=== PATIENT | female | born 1980 | race Caucasian/White ===

== ENCOUNTER → 2017-02-23 | Outpatient (CLI) | payer OTHER ==
--- NOTE | 2017-02-24 05:22 | REP ---
Clinical: Growth discrepancy . Comparison: None available . Findings: Examination demonstrates a single live intrauterine in cephalic presentation. motion is identified by technologist. Placenta is noted anteriorly and grade II without evidence for placenta previa or abruption. Amniotic fluid volume is normal. Cervix measures 3.8 cm in length and appears closed. Nuchal cord cannot be excluded. Gestational age by LMP 32 weeks 4 days with PONCHO 04/16/2017 . Gestational age by current measurements 33 weeks 5 days with PONCHO 04/08/2017 . FHR equals 157 beats per minute. BPD 8.3 cm 33 weeks 3 days HC 30.1 cm 33 weeks 3 days AC 31.0 cm 35 weeks 0 days FL 6.6 cm 33 weeks 6 days HL 5.6 cm 32 weeks 4 days HC/AC ratio 0.97 Estimated weight 2408 grams ( 80th percentile). Amniotic fluid index equals 13.0 cm. Umbilical cord SD ratio equals 2.47 Anatomical assessment demonstrates normal cranium, cavum, lungs, four-chamber heart, diaphragm, stomach, three-vessel cord/cord insertion, kidneys/bladder. Impression: Single live advanced gestation in cephalic presentation. Estimated weight within normal range. Amniotic fluid index normal. Nuchal cord cannot be excluded. Signed by Braxton Joshi MD 02/24/2017 05:14 A
== END ==
LOC: M RAD 13:32
PROVIDERS: ATTEND Obstetrics & Gynecology
DX: Z36 Encounter for antenatal screening of mother (principal); Z3A.32 32 weeks gestation of pregnancy

== ENCOUNTER 2017-04-10 07:37 | Inpatient (IN) | payer OTHER ==
[~2017-04-10] VITALS: Ht 167.6 cm; Wt 125.0 kg
[~2017-04-10 07:37] MED LIST: BICITRA 30ML SOLN UDC PO SCH; PRENTAB9 PO
[2017-04-10 08:09] VITALS: BP 127/76
[2017-04-10] MEDS ORDERED: AZITHROMYCIN INJ 500 MG, VIAL MATE ADAPTER 1 EACH in D5W 250 ML IV ONE (09:00)
[2017-04-10 09:12] VITALS: BP 139/79
[2017-04-10] MEDS ORDERED: LR 1,000 ML IV ONE (09:30)
[2017-04-10] MEDS ORDERED: LR 1,000 ML IV SCH ×3 (09:45→17:15)
[2017-04-10 09:50] LABS: MEAN CORPUSCULAR HEMOGLOBIN 30.2 pg (27.0-33.0); MEAN CORPUSCULAR VOLUME 88.6 fl (80.0-96.0); RED CELL DISTRIBUTION WIDTH 14.6 % (11.5-14.5); WHITE BLOOD COUNT 9.1 K/mm3 (4.0-10.0)
[2017-04-10] MEDS ORDERED: ceFAZolin 2 GM/D5W 50 ML IV BAG (J0690) As Ordered ONE (12:38)
[2017-04-10] MEDS ORDERED: NALBUPHINE HCL 10 MG/ML AMP (J2300) IV PRN (12:46)
[2017-04-10] MEDS ORDERED: NALOXONE INJ 0.4 MG/1 ML VIAL (J2310) IV PRN ×2 (12:46)
[2017-04-10] MEDS ORDERED: METOCLOPRAMIDE INJ 10MG/2ML VIAL (J2765) IV PRN ×2 (12:46→14:15)
[2017-04-10] MEDS ORDERED: ONDANSETRON 4MG/2ML VIAL (J2405) IV PRN ×3 (12:46→17:15)
[2017-04-10] MEDS ORDERED: ONDANSETRON 4MG/2ML VIAL (J2405) As Ordered ONE (13:09)
[2017-04-10] MEDS ORDERED: MORPHINE PRES-FREE INJ 10 MG/10 ML VIAL (J2274) As Ordered ONE (13:09)
[2017-04-10] MEDS ORDERED: PHENYLephrine HCL 500 MCG/5 ML (100MCG/ML) SYRINGE (J2370) As Ordered ONE (13:09)
[2017-04-10] MEDS ORDERED: KETOROLAC 60 MG/2 ML VIAL (J1885) As Ordered ONE (13:09)
[2017-04-10] MEDS ORDERED: ePHEDrine SULFATE 25 MG/5 ML(5MG/ML) SYRINGE As Ordered ONE (13:09)
[2017-04-10] MEDS ORDERED: MIDAZOLAM INJ 2 MG/2 ML VIAL (J2250) As Ordered ONE (13:25)
[2017-04-10] MEDS ORDERED: fentaNYL 100 MCG/2 ML INJECTION (J3010) IV PRN (14:15)
[2017-04-10] MEDS ORDERED: PERCOCET 5MG/325MG TAB PO PRN ×2 (14:15→17:15)
[2017-04-10] MEDS ORDERED: diphenhydrAMINE INJ 50MG/ML VIAL (J1200) IV PRN (14:15)
[2017-04-10 15:10] VITALS: BP 124/68
[2017-04-10 15:40] VITALS: BP 127/67
[2017-04-10] MEDS ORDERED: METHYLERGONOVINE MALEATE 0.2 MG/ML VIAL (J2210) IM PRN (17:15)
[2017-04-10] MEDS ORDERED: MEASLES,MUMPS,RUBELLA VACCINE INJ (MMR-II) (90707) SC SCH (17:15)
[2017-04-10] MEDS ORDERED: RHOGAM 300 MCG (1500 IU) INJ (J2790) IM SCH (17:15)
[2017-04-10] MEDS ORDERED: PROMETHAZINE 25 MG TAB PO PRN (17:15)
[2017-04-10 18:10] VITALS: BP_SYST 124; BP_SYST 126; BP_DIAS 73; BP_DIAS 76
[2017-04-10] MEDS: PERCOCET 5MG/325MG TAB PO PRN (18:29)
[2017-04-10] MEDS: DOCUSATE SODIUM 100 MG CAP PO SCH (19:59)
[2017-04-10] MEDS: KETOROLAC 30 MG/ML VIAL (J1885) IV SCH (20:00)
[2017-04-10 22:15] VITALS: BP 131/66
[2017-04-11] MEDS: KETOROLAC 30 MG/ML VIAL (J1885) IV SCH ×3 (02:08→14:16)
[2017-04-11 02:40] VITALS: BP 132/69
[2017-04-11 06:38] VITALS: BP 119/58
[2017-04-11 07:32] LABS: MEAN CORPUSCULAR HEMOGLOBIN 30.6 pg (27.0-33.0); MEAN CORPUSCULAR HGB CONC 34.1 g/dl (32.0-36.5); MEAN CORPUSCULAR VOLUME 89.7 fl (80.0-96.0); RED CELL DISTRIBUTION WIDTH 14.7 % (11.5-14.5)
[2017-04-11] MEDS: DOCUSATE SODIUM 100 MG CAP PO SCH ×2 (08:33→21:22)
[2017-04-11] MEDS: PRENATAL VITAMIN TAB PO SCH (08:33)
[2017-04-11 10:08] VITALS: BP 137/77
[2017-04-11 14:00] VITALS: BP 132/69
[2017-04-11] MEDS: PERCOCET 5MG/325MG TAB PO PRN ×2 (15:32→23:26)
[2017-04-11 17:59] VITALS: BP 131/69
[2017-04-11] MEDS: IBUPROFEN 800 MG TAB PO SCH (21:23)
[2017-04-11 22:51] VITALS: BP 148/80
[2017-04-12] MEDS: IBUPROFEN 800 MG TAB PO SCH (05:51)
[2017-04-12 06:00] VITALS: BP 140/72
[2017-04-12] MEDS ORDERED: COLA100C3 PO (07:45)
[2017-04-12] MEDS ORDERED: IBUP-1114 PO (07:46)
[2017-04-12] MEDS ORDERED: OXYC1TAB23 PO (07:47)
[2017-04-12] MEDS: PRENATAL VITAMIN TAB PO SCH (08:52)
[2017-04-12] MEDS: DOCUSATE SODIUM 100 MG CAP PO SCH (08:52)
== END 2017-04-12 12:15 | disposition home or self-care (01) | DRG 766 ==
LOC: M LDI 07:37 → M OBS 15:01
PROVIDERS: ADMIT Obstetrics & Gynecology; ATTEND Obstetrics & Gynecology
PROC: 10D00Z1 Extraction of Products of Conception, Low, Open Approach (ICD-10-PCS; principal; 2017-04-10 09:30)
DX: O34.211 Maternal care for low transverse scar from previous cesarean delivery (principal); Z37.0 Single live birth; Z3A.40 40 weeks gestation of pregnancy; O09.523 Supervision of elderly multigravida, third trimester; E66.9 Obesity, unspecified; O99.214 Obesity complicating childbirth

== ENCOUNTER → 2017-06-29 | Outpatient (REF) | payer OTHER ==
[~2017-06-29] MED LIST changes: -BICITRA 30ML SOLN UDC PO SCH; +COLA100C5 PO; +IBUP-1114 PO; +OXYC1TAB23 PO
== END ==
LOC: M SFHCLERA 19:51
PROVIDERS: ATTEND Physician Assistant
DX: R30.0 Dysuria (principal)